=== PATIENT | male | born 1960 | race Native Hawaiian/Other Pacific Islander ===

== ENCOUNTER 2018-05-31 13:03 | Outpatient (CLI) | payer OTHER ==
[2018-05-31 13:45] LABS: PLATELET COUNT 325 K/uL (142-355)
[2018-05-31 13:55] LABS: POTASSIUM 4.6 mmol/L (3.6-5.2)
== END 2018-05-31 21:16 | disposition home or self-care (01) ==
LOC: LABW 13:03
PROVIDERS: Emergency Medicine
DX: R07.1 Chest pain on breathing (principal); R05 Cough; I10 Essential (primary) hypertension; Z72.0 Tobacco use; M54.5 Low back pain
CPT/HCPCS: 36415; 80053; 81000; 85027; 93005

== ENCOUNTER 2018-07-01 10:06 | Outpatient (CLI) | payer OTHER | END 2018-07-01 19:44 | disposition home or self-care (01) | LOC: RAD 10:06 | DX: M54.2 Cervicalgia (principal) ==

== ENCOUNTER 2018-09-24 13:02 | Outpatient (CLI) | payer OTHER | END 2018-09-24 23:14 | disposition home or self-care (01) | LOC: RAD 13:02 | DX: M54.5 Low back pain (principal) ==

== ENCOUNTER 2019-02-11 11:34 | Outpatient (CLI) | payer OTHER ==
[2019-02-11 14:41] LABS: PLATELET COUNT 272 K/uL (142-355)
[2019-02-11 15:27] LABS: POTASSIUM 3.8 mmol/L (3.6-5.2)
== END 2019-02-11 22:41 | disposition home or self-care (01) ==
LOC: LABW 11:34 → RAD 11:34 → LABW 22:41
PROVIDERS: Emergency Medicine
DX: I10 Essential (primary) hypertension (principal); M54.5 Low back pain; F11.20 Opioid dependence, uncomplicated
CPT/HCPCS: 36415; 80053; 80074; 83735; 84403; 84439; 84443; 85027

== ENCOUNTER 2019-04-05 07:48 | Outpatient (CLI) | payer OTHER | END 2019-04-05 18:58 | disposition home or self-care (01) | LOC: MRI 07:48 | DX: M54.12 Radiculopathy, cervical region (principal); M48.00 Spinal stenosis, site unspecified; G89.29 Other chronic pain; I10 Essential (primary) hypertension; E29.1 Testicular hypofunction; F11.20 Opioid dependence, uncomplicated | CPT/HCPCS: 36415; 84153 ==

== ENCOUNTER 2019-05-09 12:28 | Outpatient (CLI) | payer OTHER | END 2019-05-09 21:40 | disposition home or self-care (01) | LOC: LABW 12:28 | DX: E29.1 Testicular hypofunction (principal); F52.21 Male erectile disorder | CPT/HCPCS: 36415; 84403 ==

== ENCOUNTER 2021-09-17 16:24 | Emergency (ER) | payer OTHER ==
[~2021-09-17] VITALS: Ht 177.8 cm; Wt 81.6 kg
[2021-09-17 19:38] VITALS: BP 128/72; TEMP 98.6
== END 2021-09-17 19:38 | disposition home or self-care (01) ==
LOC: ED 16:24
DX: H11.32 Conjunctival hemorrhage, left eye (principal); J32.8 Other chronic sinusitis; F17.210 Nicotine dependence, cigarettes, uncomplicated; W20.8XXA Other cause of strike by thrown, projected or falling object, initial encounter; Y92.89 Other specified places as the place of occurrence of the external cause
CPT/HCPCS: 99283

== ENCOUNTER 2023-01-29 14:03 | Emergency (ER) | payer OTHER ==
[~2023-01-29] VITALS: Ht 177.8 cm; Wt 81.6 kg
[2023-01-29 14:37] LABS: PLATELET COUNT 296 K/uL (142-355)
[2023-01-29 14:45] LABS: POTASSIUM 3.9 mmol/L (3.6-5.2)
[2023-01-29 14:59] LABS: PARTIAL THROMBOPLASTIN TIME 26.1 SECONDS (24.5-33.6)
[2023-01-29 16:10] VITALS: BP 154/85; TEMP 99
== END 2023-01-29 14:15 | disposition short-term general hospital (02) ==
LOC: ED 14:03
PROVIDERS: Family Medicine
DX: I21.3 ST elevation (STEMI) myocardial infarction of unspecified site (principal); I16.0 Hypertensive urgency; F17.210 Nicotine dependence, cigarettes, uncomplicated
CPT/HCPCS: 36415; 80053; 80307; 81002; 82550; 83880; 84484; 85027; 85379; 85610; 85730; 93005; 96365; 96375; 99285; J1644; J2270; J3490